=== PATIENT | female | born 1990 | race Hispanic/Latino ===

== ENCOUNTER → 2018-10-08 | Outpatient (REF) | END | disposition home or self-care (01) | DRG 951 | LOC: PAGE 09:00 | PROVIDERS: ATTEND Nurse Practitioner Family | DX: Z02.1 Encounter for pre-employment examination (principal); Z23 Encounter for immunization ==

== ENCOUNTER → 2018-10-17 | Outpatient (REF) | END | disposition home or self-care (01) | DRG 951 | LOC: PAGE 09:30 | PROVIDERS: ATTEND Nurse Practitioner Family | DX: Z23 Encounter for immunization (principal) ==

== ENCOUNTER 2020-03-25 22:11 | Emergency (ER) | payer OTHER ==
[~2020-03-25] VITALS: Ht 154.9 cm; Wt 59.1 kg
[2020-03-25] MEDS ORDERED: SILVADENE1 % EX (22:33)
[2020-03-25] MEDS ORDERED: TRAMADOL HYDROC50 MG PO (22:33)
[2020-03-25] MEDS ORDERED: IBUPROFEN600 MG PO (22:33)
[2020-03-25 23:06] VITALS: BP 128/73
== END 2020-03-25 23:16 | disposition home or self-care (01) | DRG 935 ==
LOC: ED 22:11
PROC: 2W2KX4Z Dressing of Left Finger using Bandage (ICD-10-PCS; principal; 2020-03-25)
PROC: 2W2EX4Z Dressing of Right Hand using Bandage (ICD-10-PCS; 2020-03-25)
PROC: 2W2FX4Z Dressing of Left Hand using Bandage (ICD-10-PCS; 2020-03-25)
PROC: 2W2JX4Z Dressing of Right Finger using Bandage (ICD-10-PCS; 2020-03-25)
DX: T23.262A Burn of second degree of back of left hand, initial encounter (principal); T23.261A Burn of second degree of back of right hand, initial encounter; T23.132A Burn of first degree of multiple left fingers (nail), not including thumb, initial encounter; T23.131A Burn of first degree of multiple right fingers (nail), not including thumb, initial encounter; T31.0 Burns involving less than 10% of body surface; X10.2XXA Contact with fats and cooking oils, initial encounter; Y93.G3 Activity, cooking and baking; Y92.000 Kitchen of unspecified non-institutional (private) residence as the place of occurrence of the external cause